=== PATIENT | male | born 1960 | race Caucasian/White ===

== ENCOUNTER 2016-07-11 00:52 | Emergency (ER) | payer BC ==
--- NOTE | ~2016-07-11 | CT4 ---
[facility] A Service of [facility] & [facility] RADIOLOGY TEXT RESULTS PATIENT: NICOLAS DUNN LOCATION: SED : 64 UNIT #: [id number] AGE: [address]: Jorge Pleitez MD SEX: M ORDER DR: [id number] [place] [id number] E MR#: [id number] Acc #: [id number] NAME: NICOLAS DUNN. : 1960 SEX: M STUDY DATE/TIME: 07/11/2016 2:09 UNIT: SED ROOM: STUDY DESCRIPTION: CT Abd and Pelv Wo Cont Attending Physician: Jorge Pleitez M.D. Ordering Physician: Jorge Pleitez M.D. Primary Care Physician: Edwardo Vora M.D. MEDICAL IMAGING REPORT This report is preliminary unless electronic signature is present. EXAM CT abdomen and pelvis, noncontrast, kidney stone protocol, 07/11/2016. HISTORY 56-year-old male in the ED complaining of 2-day history of left flank pain and hematuria. TECHNIQUE CT examination of the abdomen and pelvis was performed without oral or IV contrast using kidney stone protocol. This CT exam was performed with one or more of the following radiation dose reduction techniques: automatic exposure control, adjustment of mA and/or kV according to patient size, and iterative reconstruction. FINDINGS Multiple tiny nonobstructing calculi are scattered throughout the medullary portions of both kidneys, nearly all of which measure 1-2 mm in size. No stone material is seen within the ureters or urinary bladder. There is no evidence of upper urinary tract obstruction at this time. The urinary bladder is mildly distended and shows diffuse bladder wall thickening and trabeculation with a small posterior bladder diverticulum, findings suggesting chronic bladder outflow obstruction. No visible prostate enlargement or bladder base mass. Liver, pancreas, and spleen are normal in size and appearance without contrast. Contracted gallbladder. No bile duct dilatation. Small bowel and colon are normal in caliber and appearance, as imaged. No evidence of acute appendicitis. Aneurysmal dilatation of the mid infrarenal abdominal aorta measuring up to 3.4 cm. No periaortic fluid collection. STS. [facility] A Service of [facility] & [facility] RADIOLOGY TEXT RESULTS PATIENT: NICOLAS DUNN LOCATION: SED : 64 UNIT #: [id number] AGE: [address]: Jorge Pleitez MD SEX: M ORDER DR: PELVIS FINDINGS: Rectum is unremarkable. Bladder as noted above. No inguinal hernia or pelvic adenopathy. Limited lung base images show no active disease. IMPRESSION 1. Multiple tiny nonobstructing calculi scattered throughout the medullary portions of both kidneys measuring 1-2 mm in size. No stone material within the ureters or bladder. No evidence of urinary obstruction. 2. Somewhat distended, diffusely thick-walled and trabeculated urinary bladder with small posterior bladder diverticulum. The appearance suggests chronic bladder outflow obstruction. No visible enlarged prostate or bladder base mass. 3. The remainder of the examination is negative. Dictated by... Wesley Donis M.D. THIS IS AN ELECTRONICALLY VERIFIED REPORT Wesley Donis M.D. at 07/11/2016 9:56 PM CATALINA/veronique TD: 07/11/2016 11:33 JOB #: [id number] MEDICAL IMAGING REPORT Page 1 of 1
[~2016-07-11 00:52] MED LIST: DESYREL50 M1 PO; DURAGESIC1 EAC1 TD; LIPITOR PO; LORCET PO; PRILOSEC PO; VOLTAREN75 MG PO
[2016-07-11 02:58] LABS: BASOPHIL% 0.4 % (0-2.5); EOSINOPHIL% 0.2 % (0.0-7.0); HEMATOCRIT 32.6 % (38.0-50.0); LYMPHOCYTE# 1.6 X10e3 (1.0-3.5); LYMPHOCYTE% 20.7 % (17.0-45.0); MEAN CELL VOLUME 88.2 FL (83-96); MEAN CORPUSCULAR HEMOGLOBIN 29.8 PG (28-34); MEAN CORPUSCULAR HGB CONC 33.8 g/dL (30-36); MEAN PLATELET VOLUME 7.9 FL (6.5-11.5); MONOCYTE# 0.7 X10e3 (0-1.0); MONOCYTE% 8.9 % (3.0-12.0); NEUTROPHIL# 5.5 X10e3 (1.5-7.1); NEUTROPHIL% 69.8 % (40-75); PLATELET COUNT 262 X10e3 (140-420); RED BLOOD COUNT 3.69 X10e (3.90-5.60); RED CELL DISTRIBUTION WIDTH 13.7 % (11.0-15.5); WHITE BLOOD COUNT 7.9 X10e3 (4.0-10.5)
[2016-07-11 03:03] LABS: DIFF IND NO
[2016-07-11 03:06] LABS: BUN/CREATININE RATIO 13.75; CALCIUM SERUM 8.8 mg/dL (8.4-10.2); CREATININE SERUM 0.8 mg/dL (0.6-1.4); GLOM FILT RATE Estimated 101.3 mL/min (>60); POTASSIUM 3.4 mmol/L (3.5-5.1)
[2016-07-11 03:14] LABS: URINE SOURCE CLEAN CATCH
[2016-07-11 03:16] LABS: URINE APPEARANCE SL CLOUDY; URINE BILIRUBIN NEG (NEG); URINE BLOOD 1+ (NEG); URINE COLOR DK YELLOW; URINE GLUCOSE NEG (NORM); URINE KETONE NEG (NEG); URINE LEUKOCYTE ESTERASE NEG (NEG); URINE NITRATE POS (NEG); URINE PROTEIN NEG (NEG); URINE SPECIFIC GRAVITY 1.015 (1.003-1.035); URINE UROBILINOGEN 0.2 MG/DL (NORM)
[2016-07-11 03:18] LABS: MICRO INDICATED? YES
[2016-07-11 03:30] LABS: CULTURE INDICATED? YES; URINE AMORPHOUS SEDIMENT AMORP URATES; URINE BACTERIA 3+ (NEG); URINE MUCUS PRESENT; URINE RBC 25-50 /[HPF] (0-2); URINE SQUAMOUS EPITHELIAL CELL FEW /[HPF]; URINE WBC 0-2 /[HPF] (0-5)
== END 2016-07-11 03:48 | disposition home or self-care (01) ==
LOC: SED 00:52
PROVIDERS: Emergency Medicine
DX: N30.01 Acute cystitis with hematuria (principal); K21.9 Gastro-esophageal reflux disease without esophagitis; M19.90 Unspecified osteoarthritis, unspecified site; F17.200 Nicotine dependence, unspecified, uncomplicated; Z98.890 Other specified postprocedural states; Z88.0 Allergy status to penicillin; Z79.899 Other long term (current) drug therapy
CPT/HCPCS: 36415; 74176; 80048; 81003; 85025; 87086; 87088; 87186; 96361; 96374; 96375; 96376; 99284; J1170; J1885; J2405; J3360